=== PATIENT | female | born 1940 | race Caucasian/White ===

== ENCOUNTER 2019-07-27 01:40 | Inpatient (IN) | payer MEDICARE, BC ==
--- NOTE | 2019-07-27 01:55 | NUR ---
REC'D VIA STRETCHER PER EMS. MULTIPLE BRUISING TO FACE NOTED FROM FALL 3 DAYS PRIOR. RELATES IS HERE DUE TO ACCUSED RELATIVES OF TRYING TO SHAKE HER DOWN AND TAKE OVER HER CARE. RELATES SHE DOESN'T HAVE ALOT OF MONEY BUT THEY WERE TRYING TO GET WHAT SHE HAS. COOPERATIVE WITH ADMISSION PROCESS. ADMITTED TO ROOM 1134.
[2019-07-27] MEDS ORDERED: LIPITOR40 MG PO (02:42)
[2019-07-27] MEDS ORDERED: ASPIRIN325 MG PO (02:42)
[2019-07-27] MEDS ORDERED: COREG12.5 MG PO (02:43)
[2019-07-27] MEDS ORDERED: VITAMIN D31000 UNI2 PO (02:43)
[2019-07-27] MEDS ORDERED: VALIUM 2 MG TAB2 MG PO (02:44)
[2019-07-27] MEDS ORDERED: VOLTAREN75 MG PO (02:45)
[2019-07-27] MEDS ORDERED: CARDIZEM LA180 MG PO (02:46)
[2019-07-27] MEDS ORDERED: DURAGESIC1 PATCH .4 TRANSDERM (02:46)
[2019-07-27] MEDS ORDERED: PROZAC40 MG PO (02:46)
[2019-07-27] MEDS ORDERED: LASIX80 MG PO (02:47)
[2019-07-27] MEDS ORDERED: NEURONTIN 300300 MG PO (02:48)
[2019-07-27] MEDS ORDERED: LOPID600 MG PO (02:48)
[2019-07-27] MEDS ORDERED: DILAUDID2 MG (02:49)
[2019-07-27] MEDS ORDERED: NAMENDA10 MG PO (02:50)
[2019-07-27] MEDS ORDERED: MECLIZINE HCL25 MG PO (02:50)
[2019-07-27] MEDS ORDERED: PROTONIX40 MG PO (02:51)
[2019-07-27 03:45] VITALS: BP 145/77; BMI 22.0
[2019-07-27 05:12] LABS: BASOPHILS 0.7 % (0-2); EOSINOPHILS 7.7 % (0-7); HEMATOCRIT 25.1 % (36.0-48.0); LYMPHOCYTES 22.2 % (15-50); MCHC 29.9 g/dL (31.0-37.0); MCV 93.7 fL (80.0-100.0); MEAN PLATELET VOLUME 8.7 fL (7.4-10.4); MONOCYTES 15.4 % (2-11); RBC 2.68 10x6/uL (4.00-5.40); RDW 13.6 % (11.5-14.5)
[2019-07-27 05:34] LABS: HEMOGLOBIN 7.5 g/dL (12-16); PLATELET COUNT 413 10x3/uL (130-400)
[2019-07-27 06:17] LABS: ALBUMIN 2.5 g/dL (3.4-5.0); ANION GAP 11.7 mmol/L (8-16); BILIRUBIN - TOTAL 0.08 mg/dL (0.2-1.3); CALCIUM 8.4 mg/dL (8.5-10.1); CARBON DIOXIDE 29.7 mmol/L (21.0-32.0); CHOL - HDL RATIO 3.4 ratio (2.3-4.1); CREATININE - SERUM 1.2 mg/dL (0.6-1.3); LDL-HDL RATIO 1.7 ratio (1.5-3.5); POTASSIUM - SERUM 3.4 mmol/L (3.5-5.1); PROTEIN - SERUM 5.6 g/dL (6.4-8.2); THYROID STIMULATING HORMONE 1.39 uIU/mL (0.36-3.74)
[2019-07-27 08:50] VITALS: BP 145/85
[2019-07-27 10:19] VITALS: Wt 50.6 kg
[2019-07-27 12:37] LABS: % SATURATION 5 % (15-55); IRON 18 ug/dl (35-150); TOTAL IRON BIND CAPACITY 308 ug/dl (260-445); UNSAT IRON BIND CAPACITY 290 ug/dl (150-375)
--- NOTE | 2019-07-27 17:17 | NUR ---
PATIENT SUBSTAINED 2X SKIN TEAR TO LEFT FOREARM BEING COMBATIVE WITH STAFF DURING REDIRECTION. PT BECAME UPSET WHEN SHE COULDNT FIND HER CAR AND LEAVE WITH HER FAMILY. PT UNABLE TO REDIRECT AT THIS TIME.
--- NOTE | 2019-07-27 18:30 | NUR ---
The patient is upset and has not settled. She remains anxious.
--- NOTE | 2019-07-27 18:45 | NUR ---
The patient is getting anxious and she is tearful, she is argumentative. Offered her an ativan and she agreed as she is upset. Ativan 0.5 mg PO.
[2019-07-27 20:20] VITALS: BP 109/65
--- NOTE | 2019-07-27 22:44 | NUR ---
REC'D IN DAYROOM MOBILE IN WHEELCHAIR. RELATES SHE IS DOING YANY GOOD BUT SHE IS NOT SUPPOSE TO BE HERE. RELATES IS HERE BECAUSE THE CAR BROKE DOWM BUT SHE IS READY TO GO. APPROPRIATE TOWARD STAFF WHEN APPROACHED. THOUGHT SHE HAD LOST HER PURSE, COAT AND OTHER BELONGINGS. EXPLAINED TO HER BELONGINGS WERE LOCKED IN THE SAFE AND HER JACKET IS IN HER ROOM. VERBALIZED UNDERSTANDING. ADMINISTER MEDS AND MONITOR COMPLIANCE. REORIENT NEEDED. MED COMPLIANT. POOR REORIENTATION DUE TO IMPAIRED ABILITY TO RETAIN INFORMATION. CONTINUE POC AND PROVIDE SAFE ENVIRONMENT.
[2019-07-28 07:15] LABS: RAPID PLASMA REAGIN Non Reactive (Non Reactive)
--- NOTE | 2019-07-28 08:32 | NUR ---
B) The patient is quiet and sleepy this am. She has not been aggressive and exit seeking this am. The patient remains bruised all over her face. She has not stated that she is here because she needs her car fixed. She has not made any mention of the people in her home or any other paranoid statements. I) Provide prescribed meds. R) The patient is compliant with meds, she self propels in a w/c. She is able to stand and she tries to walk, but she is unsteady and has fallen before coming to the hospital. P) Continue POC.
[2019-07-28 09:39] VITALS: BP 95/50
--- NOTE | 2019-07-28 10:10 | NUR ---
Spoke to the patient's brother who is her POA and he provided a phone numbner. he wanted to check on her status.
--- NOTE | 2019-07-28 11:09 | NUR ---
The patient is arguing and she is yelling and screaming at the staff, she is being demanding and irritable with staff. She is not listening to any redirection and she is saying rude comments to others. Ativan 0.5 mg PO and Haldol 2 mg PO given now.
--- NOTE | 2019-07-28 12:09 | NUR ---
The patient is calmer now she is not yelling or demanding.
--- NOTE | 2019-07-28 14:51 | PSY ---
PATIENT NAME:LYNN ZAMUDIO MEDICAL RECORD: [id number] : 40 LOCATION:[facility] ADMISSION DATE: 07/27/19 ACCOUNT: [id number] PSYCHIATRIC EVALUATION DATE OF EVALUATION: 07/27/19 IDENTIFYING DATA: The patient is 78 years old and she is admitted to the hospital on a voluntary basis. CHIEF COMPLAINT: Psychosis. HISTORY OF PRESENT ILLNESS: The patient is referred to us by the [facility] Emergency Room in [place]. It seems that she presented there and had not been sleeping for several days. The police were involved with her in a disturbance at her home. Apparently, she believed her daughter and caregiver were someone else and that there was someone in the house pretending to be her son. There was no evidence of anything being wrong, but apparently it was clear that she was very impaired and she was transferred here for evaluation and treatment. PAST MEDICAL HISTORY: Significant for stroke. She also has history of seizures. She has history of pancreatitis, cataracts, diabetes, hypertension, myocardial infarction, Bergholz spotted fever, COPD, asthma, pneumonia, degenerative joint disease, scoliosis, hysterectomy. PAST PSYCHIATRIC HISTORY: Denied by the patient, although she is taking an antidepressant that I presume is prescribed by her primary care physician. FAMILY HISTORY: Noncontributory. ALLERGIES: METOCLOPRAMIDE. CURRENT MEDICATIONS: Include aspirin, Lipitor, Coreg, Valium, Voltaren, Cardizem, Duragesic, Prozac, Lasix, Neurontin, Lopid, Dilaudid, Namenda and Protonix. SOCIAL HISTORY: The patient is a former cigarette smoker. She does have a history of alcohol use. She is , has 2 children and lives alone. MENTAL STATUS EXAMINATION: The patient is awake, alert and oriented to person, place and somewhat to time and situation. Her mood is depressed. Her affect is constricted. Thought processes are circumstantial. Memory, concentration, and abstraction abilities are moderately impaired. She denies any active intent to harm herself or others as well as overt psychotic symptoms. ASSETS: Supportive family members. LIABILITIES: Limited insight. DIAGNOSTIC IMPRESSION: AXIS I: Major vascular dementia. AXIS II: None. AXIS III: Hypertension, myocardial infarction, chronic obstructive pulmonary disease, asthma, osteoarthritis, gastroesophageal reflux disease and diabetes. AXIS IV: Moderate. AXIS V: Global assessment of functioning is 35. PLAN: At this time, the patient will be admitted to the hospital for a comprehensive medical, psychological, and social evaluation. She will be treated with both mood stabilizing and memory enhancing medications. Her long-term prognosis is guarded. TRANSINT:[id number] Voice Confirmation ID: [id number] DOCUMENT ID: [id number] PATRICK DIETRICH MD at 1451 CC: [id number] DICTATION DATE: 07/27/19 1605 HOOF TRIMMER: 07/27/19 1624 ADM IN [place] [id number] [place] [id number]
[2019-07-28 20:00] VITALS: BP 120/43
--- NOTE | 2019-07-28 20:15 | NUR ---
PT BLOOD PRESSURE MANUALLY IS 62/34. DR. SISSY ARTEAGA.
--- NOTE | 2019-07-28 20:20 | NUR ---
DR. SHEEHAN ORDERED A BOLUS OF 0.9 NS @500ML, FOLLOWED BY 100ML/HR VIA TELEPHONE. CONFIRMED WITH DR. SHEEHAN. PATY MAJANO STARTED IV IN RIGHT FOREARM X1 ATTEMPT. 20G. PT TOLERATED WELL. NS HANGING INDWELLING BY GRAVITY. PT RESTING COMFORTABLY IN BED. WILL CONTINUE TO MONITOR.
--- NOTE | 2019-07-28 23:50 | NUR ---
PT OBSERVED CLIMBING OOB. SHE IS BETWEEN 2/3 BEDRAILS, ARM ANCHORING HER IN BED. SKIN TEAR X2 TO RIGHT FOREARM. BANDAGED. BONY PROMINENCE NOTED TO RIGHT FOREARM. PAGED DR SHEEHAN. PT B/P [id number] WILL CONTINUE TO MONITOR.
--- NOTE | 2019-07-29 00:52 | NUR ---
B.) PT IS RECIEVED IN DAYROOM SITTING IN A CHAIR. HER HEAD IS HANGING LOW AND SHE IS CALM AND RESPONSIVE TO STIMULI. I.) START IV AND BOLUS 0.9NS 500ML, FOLLOWED BY 100 ML/HR. R.) TOLERATE WELL. P.) CONTINUE PLAN OF CARE.
--- NOTE | 2019-07-29 00:58 | NUR ---
PT APPEARS SOB. O2 SAT OF 89% WITH BILAT CLEAR SOUNDS OF ALL LOBES WITH BOUNDING HEART RATE OF 100 BEATS PER MINUTE. 100 ML/HR NS STOPPED AT THIS TIME AND 2L NC ADDED. O2 SAT RECHECKED WITH 92%. WILL RECHECK BP.
--- NOTE | 2019-07-29 04:46 | NUR ---
O2 SAT 95. PT HAS TO BE AROUSED TO BREATHE AND IS ON O2 @3L VIA NC. WILL CONTINUE TO MONITOR.
--- NOTE | 2019-07-29 07:25 | NUR ---
Assessed the patient this am she says she is feeling better and she says she remembers last night. She is pleasant and polite and she is thanking staff for caring for her. She is sitting up in bed and she is on 3L/M O2, bp is low and she has bilateral 2-3 + edema in her lower legs. She is talking and responsive and making appropriate eye contact.
--- NOTE | 2019-07-29 08:02 | PN ---
PATIENT:LYNN ZAMUDIO MEDICAL RECORD: [id number] LOCATION:[facility] ADMISSION DATE: 07/27/19 PROGRESS NOTE DATE OF SERVICE: 07/28/2019 SUBJECTIVE: The patient's case was discussed with staff. She has no new complaint. OBJECTIVE: The patient has been very agitated today. She has been difficult for the staff to redirect. She denies that she would seek to harm herself or others. ASSESSMENT: Vascular dementia. PLAN: The patient's Paxil will be reduced significantly. I am probably going to discontinue it. Her long-term prognosis is guarded. TRANSINT:[id number] Voice Confirmation ID: [id number] DOCUMENT ID: [id number] PATRICK DIETRICH MD at 0802 CC: [id number] DICTATION DATE: 07/28/19 1524 BLIND HOOKER: 07/28/19 2129 ADM IN [facility] [address] [place] [address]
--- NOTE | 2019-07-29 09:15 | NUR ---
Patient trying to get out of the bed alone. Assisted her up and took her to the day room as she said she did not want to eat. Provided her a cup of orange juice and she did drink it all. She now is trying to get up to go brush her teeth, but asked her to wait just a few minutes. At this time she is following direction. She is on 3L/M O2 portable at this time.
[2019-07-29 09:16] VITALS: BP 92/51
[2019-07-29 12:06] LABS: BASOPHILS 0.5 % (0-2); EOSINOPHILS 9.9 % (0-7); HEMATOCRIT 25.5 % (36.0-48.0); HEMOGLOBIN 7.7 g/dL (12-16); IMMATURE GRANULOCYTES 0.7 % (0-5); LYMPHOCYTES 8.1 % (15-50); MCH 28.3 pg (26.0-34.0); MCHC 30.2 g/dL (31.0-37.0); MCV 93.8 fL (80.0-100.0); MONOCYTES 9.3 % (2-11); NEUTROPHILS 71.5 % (40-80); PLATELET COUNT 421 10x3/uL (130-400); RBC 2.72 10x6/uL (4.00-5.40); RDW 13.8 % (11.5-14.5); WBC 9.8 10x3/uL (4.8-10.8)
[2019-07-29 12:20] LABS: ALBUMIN 2.3 g/dL (3.4-5.0); ANION GAP 13.8 mmol/L (8-16); BILIRUBIN - TOTAL 0.15 mg/dL (0.2-1.3); CALCIUM 8.1 mg/dL (8.5-10.1); CREATININE - SERUM 1.4 mg/dL (0.6-1.3); POTASSIUM - SERUM 3.8 mmol/L (3.5-5.1); PROTEIN - SERUM 6.1 g/dL (6.4-8.2)
--- NOTE | 2019-07-29 13:49 | NUR ---
The patient is c/o being SOB, checked her vs. BP 98/65, P 90, SPO@ 88 checked on her toes, checked on finger it is 79%.
--- NOTE | 2019-07-29 13:53 | NUR ---
Called resp for a breathing treatment now.
--- NOTE | 2019-07-29 16:34 | NUR ---
The patient is getting upset, she is trying to get out of her recliner, she is hitting it and trying to spin it around. This nurse did go over to her and she is beginning to escalate and yell. She said "I want out of this damn chair, into something I can move around in." Assisted her to a w/c with her oxygen and sat her at the table, but she says "I do not need to be here, martina the police, call my Dr., get me to the [facility], I am psychotic and I have dementia and osteoporosis." Tried to talk nicely with the patient, but she is not having it. She did begin to grab my hands and say "I want you to fight me, come on e start fighting me." Ativan 0.25 mg PO given as her case was discussed with Dr. Pierce and he is aware of her rapid response last night and did not want to further exacerbate her breathing issues, so he is ok to give a partial dose of Ativan.
--- NOTE | 2019-07-29 16:51 | NUR ---
Currently the patient is sitting at the table and conversing with a male patient and he is calming her down. She is not trying to fight and she is not yelling or cursing.
[2019-07-29 20:00] VITALS: BP 110/60
--- NOTE | 2019-07-29 20:04 | NUR ---
RECEIVED IN DAYROOM. SITTING IN RECLINER AND WATCHING TV. CALM AND COOPERATIVE WITH CARE AND ASSESSMENT. NO PARANOID STATEMENTS MADE. REDIRECT AND REORIENT NEEDED. CONTINUES TO WATCH TV WHILE WAITING ON PM MEDICATIONS. CONTINUE PLAN OF CARE.
--- NOTE | 2019-07-30 07:35 | NUR ---
PATIENT EXPERIENCING ANXIETY, ATIVAN 0.5 MG ADMIN IM LEFT DELTOID.
[2019-07-30 08:00] VITALS: BP 114/62
--- NOTE | 2019-07-30 17:09 | NUR ---
NO FURTHER EPISODES OF ANXIETY SINCE THIS MORNING. HOWEVER, PATIENT FREQUENTLY REMOVES NASAL CANNULA. ENCOURAGED BY STAFF TO KEEP CANNULA ON AT ALL TIMES DUE TO O2 SATURATION DECLINE. MEDS ADMIN PER ORDERS WITH COMPLETE MED COMPLIANCE NOTED. CONTINUE PLAN OF CARE DIRECTED.
[2019-07-30 20:10] VITALS: BP 146/55
[2019-07-31 02:32] LABS: APPEARANCE CLEAR (CLEAR); BILIRUBIN NEGATIVE (NEGATIVE); COLOR YELLOW (YELLOW); GLUCOSE NEGATIVE (NEGATIVE); KETONE NEGATIVE (NEGATIVE); NITRITE NEGATIVE (NEGATIVE); PROTEIN 1+ mg/dL (NEGATIVE); UROBILINOGEN NORMAL (NORMAL)
[2019-07-31 02:33] LABS: BACTERIA NONE SEEN /hpf (NEGATIVE); EPITHELIAL CELLS 0-5 /hpf (0-5); RED CELLS - URINE NONE SEEN /hpf (0-5); WHITE CELLS - URINE 0-5 /hpf (NEGATIVE)
--- NOTE | 2019-07-31 03:55 | NUR ---
B.) PT IS ALERT AND ORIENTED TO SELF ONLY. SHE IS RECEIVED IN HER GERICHAIR. SHE HAS O2 VIA NC AT 3L. SHE IS ABLE TO MAKE HER NEEDS KNOWN. SHE IS PLESANT WITH STAFF BUT IS CONSTANTLY TRYING TO PULL HER PANTS OFF. I.) REDIRECT OFTEN. PROVIDED PM MEDICATION. R.) PT IS EASY TO REDIRECT. COMPLIANT WITH ALL MEDICATIONS. P.) CONTINUE PLAN OF CARE
[2019-07-31 08:28] VITALS: BP 127/52
--- NOTE | 2019-07-31 13:10 | NUR ---
PT IN DAYROOM SCREAMING, YELLING, AND HITTING AT STAFF. UNABLE TO REDIRECT PT AT THIS TIME. ATIVAN 0.5MG IM GIVEN PER ORDER. PT CONTINUES TO REMOVE OXYGEN AT THSI TIME. REAPPLIED PER STAFF. PT EDUCATED ON IMPORTANCE OF OXYGEN USE. WILL CPOC.
--- NOTE | 2019-07-31 13:19 | NUR ---
PT COMBATIVE NO TX GIVEN
--- NOTE | 2019-07-31 14:49 | NUR ---
Nutrition Follow-up: Chart reviewed. Noted pt with "no appetite." MD plans to start Megace. Diet: Regular + Ensure with meals PO intake: ~26% average x last 9 meals Last BM 07/27/19. Wt: 119# (07/30/19); Admit wt: 117# (07/27/19) Significant meds: megace. Labs noted: GFR 34. Skin assessment reviewed. Continue current nutrition regimen. Encourage PO intake. Continue Megace as medically feasible. RD Following
--- NOTE | 2019-07-31 15:49 | PN ---
PATIENT:LYNN ZAMUDIO MEDICAL RECORD: [id number] LOCATION:[facility] ADMISSION DATE: 07/27/19 PROGRESS NOTE DATE OF SERVICE: 07/29/2019 SUBJECTIVE: The patient's case was discussed with staff. She has no new complaint. OBJECTIVE: The patient had a rapid response called last night. Apparently, she had respiratory suppression and low blood pressure. She is better today, but she is wearing 3 liters via nasal prong. She also looks sedated. ASSESSMENT: Vascular dementia. PLAN: I am going to stop all medications that have respiratory suppression associated with it and will observe her. TRANSINT:[id number] Voice Confirmation ID: [id number] DOCUMENT ID: [id number] PATRICK DIETRICH MD at 1549 CC: [id number] DICTATION DATE: 07/29/19839 FIBERGLASS AUTO BODY REPAIRER: 07/29/19 0855 ADM IN [facility] [address] [place] [address]
--- NOTE | 2019-07-31 18:02 | NUR ---
PT VERY DEMANDING AND AGGRESSIVE WITH STAFF. PT ATTEMPTED TO KICK OTHER PTS AND STAFF. UNABLE TO REDIRECT AT THIS TIME. ATIVAN 0.5MG IM GIVEN PER ORDER. WILL CPOC.
[2019-07-31 20:05] VITALS: BP 113/66
--- NOTE | 2019-07-31 21:24 | NUR ---
RECEIVED IN DAYROOM. SITTING IN A RECLINER AT THE TABLE. O2 AT 3L VIA NC. CALM AND COOPERATIVE WITH CARE AND ASSESSMENT. NO SIGNS OF AGGRESSION. REDIERCT AND REORIENT NEEDED. CONTINUES TO SIT QUIETLY IN DAYROOM. CONTINUE PLAN OF CARE
--- NOTE | 2019-08-01 08:00 | NUR ---
PT IS AWAKE AND ALERT TO PERSON ONLY. CALM AND COOPERATIVE WITH ASSESSMENT. MED COMPLIANT. NO BEHAVIORS NOTED AT THIS TIME. REDIRECT AND REORIENT NEEDED. FALL PRECAUTIONS IN PLACE. FALL PRECAUTIONS IN PLACE. WILL CPOC.
[2019-08-01 08:18] VITALS: BP 148/75
--- NOTE | 2019-08-01 10:44 | NUR ---
NAOMI CONTACTED BROTHER AND MARILYN COMBS TO DISCUSS DISCHARGE PLANNING NEEDS. NAOMI EDUCATED ON DIFFERENT LEVELS OF CARE. NAOMI STATED AT THIS TIME PT DOESN'T LOOK TO BE ASSISTED LIVING APPROPRIATE. NAOMI EDUCATED BROTHER ON DISEASE PROGRESSION AND MEDICATION CHANGES. MR COMBS STATED HE WOULD WANT A REFERRAL TO [facility] AND THE [facility]. HE STATED HE WOULD GET WITH HIS FAMILY TO DISCUSS THE SECOND [facility] OPTION AND WILL CONTACT NAOMI WITH FURTHER DETAILS.
--- NOTE | 2019-08-01 14:56 | NUR ---
SW SPOKE TO PT'S DTR AND SHE STATED PT HAS A BROKE RIGHT PELVIS FROM A PREVIOUS FALL AND WANTED TO MAKE UNIT AWARE. SHE ALSO STATED HER RIGHT ARM JUST RECENTLY CAME OUT OF A CAST. SHE STATED SURGEONS DON'T BELIEVE THEY CAN REPAIR HER PELVIS. PT'S DTR STATED SHE DOESN'T BELIEVE SHE CAN CARE FOR PATIENT DUE TO PT BEING MEAN TO HER DURING CARE.
--- NOTE | 2019-08-01 15:28 | PN ---
PATIENT:LYNN ZAMUDIO MEDICAL RECORD: [id number] LOCATION:[facility] ADMISSION DATE: 07/27/19 PROGRESS NOTE DATE OF SERVICE: 07/31/2019 SUBJECTIVE: The patient's case was discussed with staff. She has no new complaint. OBJECTIVE: The patient is not eating adequately. She is withdrawn, but I think the issue with eating is related to dementia. I am going to start her on Megace for its appetite stimulating properties. She will be monitored for clinical changes associated with its use. Her long-term prognosis is guarded. TRANSINT:[id number] Voice Confirmation ID: [id number] DOCUMENT ID: [id number] PATRICK DIETRICH MD at 1528 CC: [id number] DICTATION DATE: 07/31/19 1643 RIB BENDER: 07/31/[address] [facility] [address] [place] [id number]
--- NOTE | 2019-08-01 20:56 | NUR ---
RECEIVED IN DINING ROOM. SITTING IN A RECLINING CHAIR WITH STAFF AT HER SIDE TAKING HER VITALS. CALM AND COOPERATIVE WITH CARE AND ASSESSMENT. IN GOOD SPIRITS. NO SIGNS OF PARANOIA. REDIRECT AND REORIENT NEEDED. SITTING QUIETLY IN DINING AREA AT THIS TIME WITH RT TECH AT HER SIDE. CONTINUE PLAN OF CARE
[2019-08-01 21:05] VITALS: BP 148/75
[2019-08-02 08:00] VITALS: BP 158/83
--- NOTE | 2019-08-02 13:00 | NUR ---
AWAKE AND ALERT WITH O2 ON AT 2L/NC. ADMINISTERED PRESCRIBED MEDICATIONS. COMPLIANT WITH MEDS, REDIRECT AND REORIENT NEEDED. NO BEHAVIORS NOTED. CONTINUE PLAN OF CARE.
--- NOTE | 2019-08-02 14:20 | PN ---
PATIENT:LYNN ZAMUDIO MEDICAL RECORD: [id number] LOCATION:[facility] ADMISSION DATE: 07/27/19 PROGRESS NOTE DATE OF SERVICE: 08/01/2019 SUBJECTIVE: The patient's case was discussed with staff. She has no new complaint. OBJECTIVE: The patient is in good behavioral control with limited insight about her condition. She tolerates her medicines well. ASSESSMENT: Vascular dementia. PLAN: The patient was very agitated yesterday and required 2 doses of p.r.n. medication. She is much calmer today. Dr. Su has started her back on [place]. I think that may be helping her level of agitation, so I am just going to watch and see how things progress today before making significant changes in her other psychoactive medicines. TRANSINT:[id number] Voice Confirmation ID: [id number] DOCUMENT ID: [id number] PATRICK DIETRICH MD at 1420 CC: [id number] DICTATION DATE: 08/01/19 155 UNEMPLOYMENT EXAMINER: 08/01/19 2218 ADM IN [facility] [address] [place] [id number]
[2019-08-02 20:00] VITALS: BP 150/83
--- NOTE | 2019-08-02 22:34 | NUR ---
B.) PT IS ALERT AND ORIENTED TO SELF ONLY. SHE IS PLEASANT WITH STAFF AND PEERS. SHE IS ABLE TO MAKE HER NEEDS KNOWN. SHE IS RECEIVED IN HER WHEELCHAIR WITH HER OXYGEN ON VIA NC @3L. I.) REDIRECT OFTEN. PROVIDED PM MEDICATIONS. R.) EASY TO REDIRECT. COMPLIANT WITH ALL MEDICATIONS. P.) CONTINUE PLAN OF CARE
[2019-08-03 08:36] VITALS: BP 160/92
--- NOTE | 2019-08-03 10:08 | NUR ---
RECEIVED PATIENT IN DINING ROOM FOR B'FAST, ALERT, CALM, COOPERATIVE, NO AGITATION OR AGGRESSION NOTED. MEDS ADMIN PER ORDERS WITH COMPLETE MED COMPLIANCE NOTED. CONT POC DIRECTED.
--- NOTE | 2019-08-03 12:10 | NUR ---
NUTRITION F/U PT WITH POOR PO INTAKE RECENT MEALS, RECEIVING MEGACE. WT REMAINS STABLE. LAST BM WAS 08/01/19. WILL CONTINUE TO MONITOR PO INTAKE AND WT. RD FOLLOWING
--- NOTE | 2019-08-03 15:25 | PN ---
PATIENT:LYNN ZAMUDIO MEDICAL RECORD: [id number] LOCATION:[facility] ADMISSION DATE: 07/27/19 PROGRESS NOTE DATE OF SERVICE: 08/02/2019 SUBJECTIVE: The patient's case was discussed with staff. She has no new complaint. OBJECTIVE: The patient is in good behavioral control and much calmer since Dr. Su replaced her on hydrocodone. ASSESSMENT: Vascular dementia. PLAN: Current medicines have been reviewed. I am going to maintain them and I am going to start her on Namenda for its memory enhancing properties. Her long-term prognosis is guarded. TRANSINT:[id number] Voice Confirmation ID: [id number] DOCUMENT ID: [id number] PATRICK DIETRICH MD at 1525 CC: [id number] DICTATION DATE: 08/02/19 1548 SPEEDOMETER INSPECTOR: 08/02/19 4859 ADM IN [facility] [address] [place] [address]
[2019-08-03 20:00] VITALS: BP 133/63
--- NOTE | 2019-08-03 23:10 | NUR ---
REC'D SITTING IN THE DAYROOM INTERACTING WITH A PEER. CONFUSED AND DISORIENTED. RELATES SHE IS AT "[facility]." REASON FOR ADMISSION ACCORDING TO PT IS "GETTING SCHOOL AND COULDN'T STOP." PT ON 3L/MIN PER NC HOWEVER KEEPS PULLING IT OFF AND LAUGHING WHEN APPROACHED BY STAFF TO REPLACE IT. PLEASANT WHEN APPROACHED BY STAFF. ADMINISTER MEDS AND MONITOR COMPLIANCE. REORIENT NEEDED. MED COMPLIANT. POOR REORIENTATION DUE TO IMPAIRED ABILITY TO RETAIN INFORMATION. CONTINUE POC AND PROVIDE SAFE ENVIRONMENT.
[2019-08-04 08:05] VITALS: BP 133/75
--- NOTE | 2019-08-04 12:50 | NUR ---
PT SITTING AT TABLE WITH STAFF. PT IS CONFUSED AND ALERT TO SELF ONLY. PT THINKS SHE IS GOING HOME AND THAT SHE HAS SMALL DOGS SHE HAS TO TEND TOO. PT HAS O2 NC AT 3LPM. PT CONTS TO REMOVE NC AND STAFF EDUCATES AND REPLACES NC. PT IS VERY FORGETFUL AND HAS LIMITED INSIGHT TO SITUTION. STAFF ATTEMPTS TO REDIRECT PT. PT LAUGHS AT STAFF. PT IS NOT AGGRESSIVE WITH STAFF. PT REQUIRES ASSISTANCE WITH AMBULATORY AND ADL'S. CHAIR ALARM IN PLACE AND ACTIVE. WILL CONT PLAN OF CARE.
--- NOTE | 2019-08-04 14:32 | PN ---
PATIENT:LYNN ZAMUDIO MEDICAL RECORD: [id number] LOCATION:[facility] ADMISSION DATE: 07/27/19 PROGRESS NOTE DATE OF SERVICE: 08/03/2019 SUBJECTIVE: The patient's case was discussed with staff. She has no new complaint. OBJECTIVE: The patient is in good behavioral control with limited insight about her condition. She does tolerate her medicines well. ASSESSMENT: Dementia. PLAN: Current medicines have been reviewed and will be maintained. Long-term prognosis is guarded. TRANSINT:[id number] Voice Confirmation ID: [id number] DOCUMENT ID: [id number] PATRICK DIETRICH MD at 1432 CC: [id number] DICTATION DATE: 08/03/19 1550 FUELS ENGINEER: 08/03/19 2325 ADM IN [place] [id number] [place] [address]
[2019-08-04 21:35] VITALS: BP 117/63
--- NOTE | 2019-08-04 23:11 | NUR ---
REC'D SITTING IN A CHAIR IN THE HALLWAY. CONFUSED AND DISORIENTED. PLEASANT WHEN APPROACHED. DOES NOT LEAVE HER O2 ON. PT IS TO WEAR HER 02 AT 3L/MIN NC AT ALL TIMES. PT WILL LAUGH WHEN TRYING TO INTERACT WITH STAFF. ADMINISTER MEDS AND MONITOR COMPLIANCE. REORIENT NEEDED. MED COMPLIANT. POOR REORIENTATION PATIENT WILL LAUGH AND RESPOND WITH SOMETHING THAT IS NOT IN THE CONTEXT OF THE CONVERSATION. CONTINUE POC AND PROVIDE SAFE ENVIRONMENT.
--- NOTE | 2019-08-05 09:55 | NUR ---
B) The patient is awake and she is confused as she is trying to stand and when staff ask her what she needs she says "To do more." She has poor short term memory and she has poor insight into her situation. I) Provide prescribed meds. R) The patient is compliant with meds. P) Continue POC.
[2019-08-05 10:02] VITALS: BP 143/67
--- NOTE | 2019-08-05 11:25 | NUR ---
The patient is confused she keeps taking off her oxygen and she keeps trying to touch the oxygen tank. She is also trying to stand. She has poor insight into her situation. Placed the oxygen tank behind her chair and replaced the tubing in her nares.
--- NOTE | 2019-08-05 12:27 | PN ---
PATIENT:LYNN ZAMUDIO MEDICAL RECORD: [id number] LOCATION:[facility] ADMISSION DATE: 07/27/19 PROGRESS NOTE DATE OF SERVICE: 08/04/2019 SUBJECTIVE: The patient's case was discussed with staff. She has no new complaint. OBJECTIVE: The patient slept well last night. She has limited insight about her situation. She still is not eating well, although she is receiving Megace. ASSESSMENT: Vascular dementia. PLAN: Current medicines have been reviewed and will be maintained. Long-term prognosis is guarded. TRANSINT:[id number] Voice Confirmation ID: [id number] DOCUMENT ID: [id number] PATRICK DIETRICH MD at 1227 CC: [id number] DICTATION DATE: 08/04/19 1440 EMERGENCY DEPT TECH: 08/04/19 1543 ADM IN [place] [id number] [place] [address]
--- NOTE | 2019-08-05 12:45 | NUR ---
Rose Palencia APN ordered oxygen prn at this time. Removed the patient's O2 and her O2 sat is 94%.
--- NOTE | 2019-08-05 14:10 | NUR ---
The patient refuses to have her lab drawn at this time. She told the physical laboratory assistant to leave her alone. She does not feel well she has had two loose BM's. Let Rose Palencia APN be aware and she prescribed Flagyl and Imodium, see MAR.
[2019-08-05 16:07] LABS: BASOPHILS 0.6 % (0-2); EOSINOPHILS 1.7 % (0-7); HEMATOCRIT 26.2 % (36.0-48.0); HEMOGLOBIN 7.6 g/dL (12-16); IMMATURE GRANULOCYTES 0.5 % (0-5); LYMPHOCYTES 14.7 % (15-50); MCH 27.5 pg (26.0-34.0); MCV 94.9 fL (80.0-100.0); MEAN PLATELET VOLUME 9.6 fL (7.4-10.4); MONOCYTES 7.5 % (2-11); PLATELET COUNT 563 10x3/uL (130-400); RBC 2.76 10x6/uL (4.00-5.40); WBC 10.8 10x3/uL (4.8-10.8)
[2019-08-05 16:12] LABS: ALBUMIN 2.6 g/dL (3.4-5.0); ANION GAP 13.8 mmol/L (8-16); BILIRUBIN - TOTAL 0.24 mg/dL (0.2-1.3); CALCIUM 8.5 mg/dL (8.5-10.1); CREATININE - SERUM 0.9 mg/dL (0.6-1.3); PROTEIN - SERUM 6.8 g/dL (6.4-8.2)
[2019-08-05 16:13] LABS: POTASSIUM - SERUM 2.8 mmol/L (3.5-5.1)
--- NOTE | 2019-08-05 16:16 | NUR ---
Lab called a critical potassium 2.8, Called Rose Palencia APN and she ordered potassium 20 mEq po now, 20 mEq po at 2100 and 20 mEq po daily and recheck her BMP tomorrow.
[2019-08-05 20:04] VITALS: BP 126/51
--- NOTE | 2019-08-06 00:34 | NUR ---
REC'D PATIENT SITTING IN CHAIR. SMILES WHEN APPROACHED. CONFUSED AND DISORIENTED. WHEN TALKING WITH PATIENT SHE WILL LAUGH VERSUS RESPONDING TO QUESTIONS. CALM AND COOPERATIVE. ADMINISTER MEDS AND MONITOR COMPLIANCE. REORIENT NEEDED. MED COMPLIANT. DOES NOT APPEAR TO REORIENT. PATIENT WILL JUST LAUGH WHEN NURSE IS TALKING WITH HER. CONTINUE POC AND PROVIDE SAFE ENVIRONMENT.
[2019-08-06 06:06] LABS: CALC OSMOLALITY 300 mosm/kg (275-300); CALCIUM 8.7 mg/dL (8.5-10.1); CARBON DIOXIDE 27.9 mmol/L (21.0-32.0); CHLORIDE - SERUM 113 mmol/L (98-107); CREATININE - SERUM 0.7 mg/dL (0.6-1.3); GLUCOSE 104 mg/dL (74-106); SODIUM 151 mmol/L (136-145); eGFR NON AFRICAN AMERICAN 86 mL/min (90-120)
[2019-08-06 06:07] LABS: UREA NITROGEN 15 mg/dL (7-18)
[2019-08-06 09:05] VITALS: BP 134/69
--- NOTE | 2019-08-06 11:27 | NUR ---
PT IS AWAKE AND ALERT TO PERSON ONLY. CALM AND COOPERATIVE WITH ASSESSMENT. MED COMPLIANT. NO BEHAVIORS NOTED AT THIS TIME. PT HAS POOR INSIGHT. REDIRECT AND REORIENT NEEDED. FALL PRECAUTIONS IN PLACE. WILL CPOC.
--- NOTE | 2019-08-06 11:38 | NUR ---
PT HAD A SMALL BOWEL MOVEMENT. THIS NURSE AND MHT ASSISTED PT TO RESTROOM, CLEAN UP, CHANGED BRIEF AND CHANGE OF CLOTHES ON. PT TOLERATED WELL.
--- NOTE | 2019-08-06 16:57 | NUR ---
PT HAD A VISITOR THIS SHIFT. TOLERATED WELL WITH NO RESTLESSNESS NOTED. PT HAS BEEN DRINKING WATER VERY WELL THIS SHIFT DUE TO HAVING A HIGH SODIUM LEVEL. WILL CONT TO MONITOR.
--- NOTE | 2019-08-06 21:43 | NUR ---
RECEIVED IN HALLWAY OUTSIDE OF NURSES STATION. CALM AND COOPERATIVE WITH CARE AND ASSESSMENT. NO PARANOID STATEMENTS. REDIRECT AND REORIENT NEEDED. RESTING IN BED WITH EYES CLOSED AT THIS TIME. CONTINUE PLAN OF CARE.
[2019-08-07 07:02] LABS: BASOPHILS 0.4 % (0-2); EOSINOPHILS 0.5 % (0-7); HEMATOCRIT 26.4 % (36.0-48.0); HEMOGLOBIN 7.8 g/dL (12-16); IMMATURE GRANULOCYTES 0.4 % (0-5); LYMPHOCYTES 7.1 % (15-50); MCH 27.6 pg (26.0-34.0); MCHC 29.5 g/dL (31.0-37.0); MCV 93.3 fL (80.0-100.0); MEAN PLATELET VOLUME 9.3 fL (7.4-10.4); MONOCYTES 6.8 % (2-11); NEUTROPHILS 84.8 % (40-80); PLATELET COUNT 543 10x3/uL (130-400); RBC 2.83 10x6/uL (4.00-5.40); RDW 14.1 % (11.5-14.5); WBC 18.8 10x3/uL (4.8-10.8)
--- NOTE | 2019-08-07 08:12 | NUR ---
DR. SHEEHAN NOTIFIED IN REGARDS TO RIGHT FOREARM SWOLLEN AND WARM TO THE TOUCH. V/S 99.0, 137/65, 94-O2,118, R-16. NEW ORDERS NOTED FOR RIGHT FOREARM XRAY, ROCEPHIN 1GM IM X 7 DAYS AND PROBIOTIC 460MG PO DAILY X 14 DAYS. WILL CPOC.
[2019-08-07 08:47] LABS: ALBUMIN 2.7 g/dL (3.4-5.0); ALKALINE PHOSPHATASE 125 U/L (46-116); ALT (SGPT) 19 U/L (10-68); BILIRUBIN - TOTAL 0.37 mg/dL (0.2-1.3); CALC OSMOLALITY 287 mosm/kg (275-300); CARBON DIOXIDE 24.7 mmol/L (21.0-32.0); CHLORIDE - SERUM 109 mmol/L (98-107); CREATININE - SERUM 0.6 mg/dL (0.6-1.3); GLUCOSE 107 mg/dL (74-106); POTASSIUM - SERUM 3.9 mmol/L (3.5-5.1); PROTEIN - SERUM 6.6 g/dL (6.4-8.2); SODIUM 145 mmol/L (136-145); UREA NITROGEN 11 mg/dL (7-18); eGFR NON AFRICAN AMERICAN > 90 mL/min (90-120)
[2019-08-07 10:44] VITALS: BP 137/65
--- NOTE | 2019-08-07 14:01 | PN ---
PATIENT:LYNN ZAMUDIO MEDICAL RECORD: [id number] LOCATION:[facility] ADMISSION DATE: 07/27/19 PROGRESS NOTE DATE OF SERVICE: 08/05/2019 SUBJECTIVE: The patient's case was discussed with staff. She has no new complaint. OBJECTIVE: The patient is in good behavioral control with limited insight about her condition. She has had no agitated behavior today. ASSESSMENT: Vascular dementia. PLAN: Current medicines have been reviewed and will be maintained. Her long-term prognosis is guarded. I anticipate she can be discharged from the hospital soon. TRANSINT:[id number] Voice Confirmation ID: [id number] DOCUMENT ID: [id number] PATRICK DIETRICH MD at 1401 CC: [id number] DICTATION DATE: 08/05/19 1235 AUDITOR: 08/05/19 1248 ADM IN [place] [id number] [place] [address]
[2019-08-07 21:37] VITALS: BP 121/76
--- NOTE | 2019-08-08 00:16 | NUR ---
RECEIVED IN HALLWAY OUTSIDE OF NURSES STATION. SITTING IN A RECLINER.. CALM AND COOPERATIVE WITH CARE AND ASSESSMENT. NO SIGNS OF AGGRESSION. REDIRECT AND REORIENT NEEDED. RESTING IN BED WITH EYES CLOSED. CONTINUE PLAN OF CARE
--- NOTE | 2019-08-08 02:26 | NUR ---
PT RIGHT FOREARM SORE, RED, SWOLLEN AND TENDER TO TOUCH. ELEVATED ARM AND PLACED ICE PACK ON IT. WILL CONTINUE TO MONITOR.
[2019-08-08 08:00] VITALS: BP 132/79
--- NOTE | 2019-08-08 12:00 | NUR ---
RECEIVED PT. IN D/R FOR B'FAST, ALERT, CALM, COOPERATIVE. NO BEHAVIORAL ISSUES NOTED. COMPLIANT WITH MEDS. PT. TO DISCHARGE LATER THIS SHIFT.
--- NOTE | 2019-08-08 12:52 | PN ---
PATIENT:LYNN ZAMUDIO MEDICAL RECORD: [id number] LOCATION:[facility] ADMISSION DATE: 07/27/19 PROGRESS NOTE DATE OF SERVICE: 08/07/2019 SUBJECTIVE: The patient's case was discussed with staff. She has no new complaint. OBJECTIVE: The patient is tolerating her medicines well. She has limited insight about her situation. She has not been aggressive. ASSESSMENT: No change in diagnoses. PLAN: The patient's Namenda is going to be increased to 5 mg twice daily. She will be monitored for clinical changes associated with its use. Her long-term prognosis is guarded. TRANSINT:[id number] Voice Confirmation ID: [id number] DOCUMENT ID: [id number] PATRICK DIETRICH MD at 1252 CC: [id number] DICTATION DATE: 08/07/19 1741 BOTTOMING ROOM SUPERVISOR: 08/08/19 0140 ADM IN [place] [id number] [place] [address]
--- NOTE | 2019-08-08 15:27 | NUR ---
RECEIVED PT IN DINING ROOM AT BREAKFAST TIME, ALERT, CALM, CONFUSED, COOPERATIVE WITH STAFF, CHEERFUL MOOD, CONT ON ROCEPHIN WITH NO S/S ADVERSE REACTION. COMPLIANT WITH MEDS, COOPERATIVE WITH PLAN OF CARE.
--- NOTE | 2019-08-08 16:05 | NUR ---
Nutrition Follow-up: Diet: Regular + Ensure TID PO intake: ~29% average x last 9 meals recorded Chart reviewed. Noted pt must be fed at meal times. Last BM: 08/08/19. Wt: 113# (08/06/19); Admit wt: 117# (07/27/19). Noted pt is on Megace already. Labs and skin assessment reviewed. Continue current nutrition regimen. Encourage PO intake. Clinical Nutrition is available should enteral nutrition be clinically indicated or desired. RD Following.
[2019-08-08 20:00] VITALS: BP 122/53
--- NOTE | 2019-08-08 22:03 | NUR ---
RECEIVED IN DAYROOM. WATCHING TV. CALM AND COOPERATIVE WITH CARE AND ASSESSMENT. NO PARANOID STATEMENTS MADE THIS EVENING. REDIRECT AND REORIENT NEEDED. RESTING IN BED WITH EYES CLOSED AT THIS TIME. CONTINUE PLAN OF CARE.
[2019-08-09 08:42] VITALS: BP 174/80
--- NOTE | 2019-08-09 12:02 | PN ---
PATIENT:LYNN ZAMUDIO MEDICAL RECORD: [id number] LOCATION:[facility] ADMISSION DATE: 07/27/19 PROGRESS NOTE DATE OF SERVICE: 08/08/2019 SUBJECTIVE: The patient's case was discussed with staff. She has no new complaint. OBJECTIVE: The patient is in good behavioral control with poor insight about her condition. She is not eating very well, but is taking Megace. She has no thoughts of harming herself or others. ASSESSMENT: Vascular dementia. PLAN: Current medicines have been reviewed and will be maintained. Long-term prognosis is guarded. TRANSINT:[id number] Voice Confirmation ID: [id number] DOCUMENT ID: [id number] PATRICK DIETRICH MD at 1202 CC: [id number] DICTATION DATE: 08/08/19 1315 MACHINE PULLER AND LASTER: 08/08/19 2259 ADM IN [place] [id number] [place] [address]
--- NOTE | 2019-08-09 21:50 | NUR ---
PATIENT RECEIVED IN DAYROOM, PATIENT HAS A GOOD AFFECT, SHE IS VERY CONFUSED, COMPLIANT WITH MEDS, NO ADVERSE EFFECT NOTED. REQUIRES HELP WITH ADL'S. WILL FOLLOW POC
[2019-08-09 23:46] VITALS: BP 116/70
--- NOTE | 2019-08-10 08:18 | NUR ---
B) The patient is awake and alert, she is calm, she is not paranoid at this time. She is in a w/c and she self propels. I) Provide prescribed meds. R) The patient is compliant with meds. P) Continue POC.
[2019-08-10 09:26] VITALS: BP 158/92
--- NOTE | 2019-08-10 13:11 | NUR ---
NUTRITION F/U CHART REVIEWED. PT WT DOWN ~4#. GOOD INTAKE RECENT MEALS. BM RECORDED ON 08/09/19. PT REQUIRES ASSIST WITH MEALS, RECEIVING MEGACE AND ENSURE. WILL CONTINUE TO PROVIDE DIET AND ENSURE. MONITOR PO INTAKE AND WT. RD FOLLOWING
--- NOTE | 2019-08-10 13:51 | PN ---
PATIENT:LYNN ZAMUDIO MEDICAL RECORD: [id number] LOCATION:[facility] ADMISSION DATE: 07/27/19 PROGRESS NOTE DATE OF SERVICE: 08/09/2019 SUBJECTIVE: The patient's case was discussed with staff. She has no new complaint. OBJECTIVE: The patient is in good behavioral control with poor insight about her condition. She is tolerating her medicines well. ASSESSMENT: Vascular dementia. PLAN: Current medicines have been reviewed and will be maintained. I think her long-term prognosis is guarded and if this level of improvement continues, I anticipate she can be transitioned out of the hospital soon. TRANSINT:[id number] Voice Confirmation ID: [id number] DOCUMENT ID: [id number] PATRICK DIETRICH MD at 1351 CC: [id number] DICTATION DATE: 08/09/19 1240 OBSTETRICAL NURSE: 08/09/19 1249 ADM IN [place] [id number] [place] [address]
--- NOTE | 2019-08-10 19:30 | NUR ---
PATIENT RECEIVED IN DAYROOM. SITTING CALMLY, SMILING, GREAT AFFECT, SHE HAS BEEN COMPLIANT WITH MEDS, NO ADVERSE REACTION NOTED, SHE IS DEPENDENT ON OTHERS FOR SELF CARE. COMPLETELY CONFUSED. WILL FOLLOW POC
[2019-08-10 22:12] VITALS: BP 141/81
--- NOTE | 2019-08-11 09:13 | NUR ---
B) The patient is sleepy and slugglish this am. She awakened enough to eat a little breakfast and she took her am meds. She is pleasant and calm, oriented to self only. No mention of paranoia today. She is in a gerichair and she is weak and moves very little. I) Provide the prescribed meds. R) The patient is compliant with meds. P) Continue POC.
--- NOTE | 2019-08-11 10:19 | NUR ---
Spoke to the patient's brother and he wanted to know when the patient is going to be discharged and he also wanted to know if the referral to [facility] has been completed. Let him know the referral has been done and we do not have a discharge date, but Mike Mercer will be in on Wednesday. He said he will call [facility] and see where everything is on their end.
[2019-08-11 10:52] VITALS: BP 147/86
--- NOTE | 2019-08-11 14:05 | PN ---
PATIENT:LYNN ZAMUDIO MEDICAL RECORD: [id number] LOCATION:[facility] ADMISSION DATE: 07/27/19 PROGRESS NOTE DATE OF SERVICE: 08/10/2019 SUBJECTIVE: The patient's case was discussed with staff. She has no new complaint. OBJECTIVE: The patient is in good behavioral control with limited insight about her condition. She has not been aggressive. ASSESSMENT: Dementia. PLAN: Brief supportive and educational interventions were made. Long-term prognosis is guarded. TRANSINT:[id number] Voice Confirmation ID: [id number] DOCUMENT ID: [id number] PATRICK DIETRICH MD at 1405 CC: [id number] DICTATION DATE: 08/10/19 1608 BELLOWS FILLER: 08/11/19 0013 ADM IN [place] [id number] [place] [address]
[2019-08-11 20:30] VITALS: BP 100/70
--- NOTE | 2019-08-11 23:14 | NUR ---
B.) PT IS ALERT AND ORIENTED TO HERSELF. SHE IS RECEIVED IN A GERICHAIR. SHE IS ABLE TO MAKE HER NEEDS KNOWN. SHE IS A TOTAL ASSIST WITH TRANSFER. SHE IS PLEASANT WITH STAFF AND PEERS. I.) REDIRECT NEEDED. PROVIDED PM MEDICATIONS. R.) EASY TO REDIRECT. COMPLIANT WITH ALL MEDICATIONS. P.) CONTINUE PLAN OF CARE
[2019-08-12 08:00] VITALS: BP 143/95
--- NOTE | 2019-08-12 10:53 | NUR ---
B) The patient is sleeping at this time. She was pleasant this am at breakfast but ate very little. She has not made any paranoid statements. I) Provide prescribed meds. R) The patient is compliant with meds. P) Continue POC.
--- NOTE | 2019-08-12 12:13 | PN ---
PATIENT:LYNN ZAMUDIO MEDICAL RECORD: [id number] LOCATION:[facility] ADMISSION DATE: 07/27/19 PROGRESS NOTE DATE OF SERVICE: 08/11/2019 SUBJECTIVE: The patient's case was discussed with staff. She has no new complaint. OBJECTIVE: The patient denies intent to harm herself or others. She is tolerating her medicines well. Eye contact is fair. ASSESSMENT: Dementia. PLAN: I anticipate the patient can be transitioned out of the hospital soon if this level of improvement continues. TRANSINT:[id number] Voice Confirmation ID: [id number] DOCUMENT ID: [id number] PATRICK DIETRICH MD at 1213 CC: [id number] DICTATION DATE: 08/11/19 1425 PETROLEUM ENGINEER: 08/11/[address] [facility] [address] [place] [address]
[2019-08-12 19:30] VITALS: BP 135/62
--- NOTE | 2019-08-13 00:58 | NUR ---
B.) PT IS ALERT AND ORIENTED TO SELF AND HAS LITTLE INSIGHT INTO HER SITUATION. SHE IS RECEIVED IN THE DAY ROOM IN A GERICHAIR. SHE IS SOCIAL AND PLEASANT WITH STAFF AND PEERS. SHE IS ABLE TO MAKE HER NEEDS KNOWN. I.) PROVIDED PM MEDICATIONS. REDIRECT OFTEN. R.) COMPLIANT WITH ALL MEDICATION. EASY TO REDIRECT. P.) CONTINUE PLAN OF CARE
[2019-08-13 08:00] VITALS: BP 160/93
--- NOTE | 2019-08-13 09:40 | NUR ---
PT IS AWAKE AND ALERT TO PERSON. CALM AMD COOPERATIVE WITH ASSESSMENT. PT DRANK ENSURE AT BREAKFAST, ENCOURAGED TO EAT PER STAFF. PT REFUSED BREAKFAST X 3. PRESCRIBED MEDS PROVIDED. MED COMPLIANT. PT IS VERY PLEASANT THIS MORNING WITH STAFF. PT STATES " I'M JUST NOT HUNGRY." EXPLAINED TO PT THE IMPORTANCE OF EATING. PT VERBALIZED UNDERSTANDING, STATED " I WILL TRY TO EAT MORE AT LUNCH." NO BEHAVIORS NOTED AT THIS TIME. FALL PRECAUTIONS IN PLACE. WILL CPOC.
[2019-08-13 20:00] VITALS: BP 127/66
--- NOTE | 2019-08-13 20:53 | PN ---
PATIENT:LYNN ZAMUDIO MEDICAL RECORD: [id number] LOCATION:[facility] ADMISSION DATE: 07/27/19 PROGRESS NOTE DATE OF SERVICE: 08/12/2019 SUBJECTIVE: The patient's case was discussed with staff. She has no new complaint. OBJECTIVE: The patient is in good behavioral control with limited insight about her condition. She is tolerating her medicines well. ASSESSMENT: Vascular dementia. PLAN: Brief supportive and educational interventions were made. Long-term prognosis is guarded. TRANSINT:[id number] Voice Confirmation ID: [id number] DOCUMENT ID: [id number] PATRICK DIETRICH MD at 2053 CC: [id number] DICTATION DATE: 08/12/19 1302 BONE GLUE MAKER: 08/12/19 1327 ADM IN [place] [address] [place] [address]
--- NOTE | 2019-08-13 21:07 | NUR ---
RECEIVED IN HALLWAY. SITTING IN A RECLINER OUTSIDE OF NURSES STATION. CALM AND COOPERATIVE WITH CARE AND ASSESSMENT. NO SIGNS OF PARANOIA. IN GOOD SPIRITS. REDIRECT AND REORIENT NEEDED. RESTING IN BED WITH EYES CLOSED AT THIS TIME. CONTINUE PLAN OF CARE
[2019-08-14 08:30] VITALS: BP 153/72
--- NOTE | 2019-08-14 10:50 | NUR ---
PT IS AWAKE AND ALERT TO PERSON. CALM AND COOPERATIVE WITH ASSESSMENT. PRESCRIBED MEDS PROVIDED. REDIRECT AND REORIENT NEEDED. MED COMPLIANT. NO BEHAVIORS NOTED AT THIS TIME. FALL PRECAUTIONS IN PLACE. WILL CPOC.
--- NOTE | 2019-08-14 14:07 | NUR ---
PATIENT AWAKE AND ALERT TO PERSON. CALM AND COOPERATIVE WITH CARE AND ASSESSMENT. ADMINISTER PRESCRIBED MEDICATIONS. MEDICATION COMPLIANT. REDIRECT AND REORIENT NEEDED. WILL CONTINUE PLAN OF CARE.
--- NOTE | 2019-08-14 15:38 | PN ---
PATIENT:LYNN ZAMUDIO MEDICAL RECORD: [id number] LOCATION:[facility] ADMISSION DATE: 07/27/19 PROGRESS NOTE DATE OF SERVICE: 08/13/2019 SUBJECTIVE: The patient's case was discussed with staff. She has no new complaint. OBJECTIVE: The patient is in good behavioral control with limited insight about her condition. She is tolerating her medicines well. ASSESSMENT: No change in diagnoses. PLAN: Current medicines have been reviewed and will be maintained. Long-term prognosis is guarded. TRANSINT:[id number] Voice Confirmation ID: [id number] DOCUMENT ID: [id number] PATRICK DIETRICH MD at 1538 CC: [id number] DICTATION DATE: 08/13/192106 TERMINAL SUPERINTENDENT: 08/14/19 0016 ADM IN [facility] [address] [place] [address]
[2019-08-14 23:24] VITALS: BP 122/80
--- NOTE | 2019-08-15 01:06 | NUR ---
RECEIVED IN HALLWAY OUTSIDE OF NURSES STATION. SITTING IN A RECLINER WITH PEERS AT HER SIDE. SOCIAL AT TIMES. CALM AND COOPERATIVE WITH CARE AND ASSESSMENT. NO SIGNS OF HALLUCINATIONS. REDIRECT AND REORIENT NEEDED. RESTING IN BED WITH EYES CLOSED. CONTINUE PLAN OF CARE
[2019-08-15 09:00] VITALS: BP 128/89
--- NOTE | 2019-08-15 10:30 | NUR ---
PT IS AWAKE AND ALERT TO PERSON. PT IS VERY PLEASANT THIS MORNING. SOCIALIZING WITH PEERS OVER BREAKFAST. CALM AND COOPERATIVE WITH ASSESSMENT. MED COMPLIANT. REDIRECT AND REORIENT NEEDED. NO BEHAVIORS NOTED AT THIS TIME. FALL PRECAUTIONS IN PLACE. WILL CPOC.
--- NOTE | 2019-08-15 11:54 | PN ---
PATIENT:LYNN ZAMUDIO MEDICAL RECORD: [id number] LOCATION:[facility] ADMISSION DATE: 07/27/19 PROGRESS NOTE DATE OF SERVICE: 08/14/2019 SUBJECTIVE: The patient's case was discussed with staff. She has no new complaint. OBJECTIVE: The patient is in good behavioral control with limited insight about her condition. She is generally tolerating her medicines well. Her behavior has significantly improved over the past couple of days. ASSESSMENT: Vascular dementia. PLAN: Current medicines have been reviewed and will be maintained. Long-term prognosis is guarded. TRANSINT:[id number] Voice Confirmation ID: [id number] DOCUMENT ID: [id number] PATRICK DIETRICH MD at 1154 CC: [id number] DICTATION DATE: 08/14/19 170 BUSINESS PARTNER: 08/14/191958 ADM IN [facility] [address] [place] [address]
[2019-08-15] MEDS ORDERED: LIPITOR20 MG PO (12:28)
[2019-08-15] MEDS ORDERED: COREG6.25 MG PO (12:28)
[2019-08-15] MEDS ORDERED: NIFEREX-150 CAP1 CA3 PO (12:28)
[2019-08-15] MEDS ORDERED: ASPIRIN81 MG PO (12:29)
[2019-08-15] MEDS ORDERED: PROZAC20 MG PO (12:29)
[2019-08-15] MEDS ORDERED: NAMENDA5 MG PO (12:30)
[2019-08-15] MEDS ORDERED: FLORAJEN3 CAPS460 MG PO (12:30)
[2019-08-15] MEDS ORDERED: LINZESS145 MCG PO (12:31)
[2019-08-15] MEDS ORDERED: Megace ES [CHEMO] PO (12:31)
--- NOTE | 2019-08-15 13:14 | NUR ---
SW CONTACTED FAMILY AND ALERTED OF DISCHARGE FOR TOMORROW TO [facility]. DTR VOICED UNDERSTANDING AND STATED SHE WOULD CONTACT HER UNCLE TO LET HIM KNOW.
--- NOTE | 2019-08-15 19:56 | NUR ---
RECEIVED IN DAYROOM. SITTING IN A RECLINING CHAIR WITH PEERS AT HER SIDE. CALM AND COOPERATIVE WITH CARE AND ASSESSMENT. NO SIGNS OF HALLUCINATIONS. REDIRECT AND REORIENT NEEDED. CONTINUES TO SIT CALMLY IN RECLINER. CONTINUE PLAN OF CARE.
[2019-08-15 22:59] VITALS: BP 133/84
--- NOTE | 2019-08-16 08:00 | NUR ---
REC'D PT IN HALLWAY BY NURSES STATION SOCIALIZING WITH PEERS. AWAKE AND ALERT TO PERSON. CALM AND COOPERATIVE WITH ASSESSMENT. PRESCRIBED MEDS PROVIVED. MED COMPLIANT. NO BEHAVIORS NOTED AT THIS TIME. PT IS PLEASANT AND VERY COOPERATIVE WITH PEERS AND STAFF. FALL PRECAUTIONS IN PLACE. WILL CPOC.
[2019-08-16 08:50] VITALS: BP 132/77
--- NOTE | 2019-08-16 11:27 | NUR ---
REPORT CALLED TO BRISEIDA,ADMISSION COORDINATOR AT [facility].
--- NOTE | 2019-08-16 12:24 | PN ---
PATIENT:LYNN ZAMUDIO MEDICAL RECORD: [id number] LOCATION:[facility] ADMISSION DATE: 07/27/19 PROGRESS NOTE DATE OF SERVICE: 08/15/2019 SUBJECTIVE: The patient's case was discussed with staff. She has no new complaint. OBJECTIVE: The patient is sleeping well and eating adequately. She is tolerating her current medications well. I anticipate that she can be transitioned back to the residential tomorrow. TRANSINT:[id number] Voice Confirmation ID: [id number] DOCUMENT ID: [id number] PATRICK DIETRICH MD at 1224 CC: [id number] DICTATION DATE: 08/15/19 1227 QUILLER TENDER: 08/15/19 1233 ADM IN [place] [id number] [place] [address]
--- NOTE | 2019-08-16 13:40 | NUR ---
DISCHARGED TO [facility] VIA VAN PER WHEELCHAIR. BELONGINGS GIVEN TO RADIOLOGY SUPERVISOR. SRINIVAS FAXED TO [facility].
--- NOTE | 2019-08-17 15:09 | PN ---
PATIENT:LYNN ZAMUDIO MEDICAL RECORD: [id number] LOCATION:[facility] ADMISSION DATE: 07/27/19 PROGRESS NOTE DATE OF SERVICE: 08/16/2019 SUBJECTIVE: The patient's case was discussed with staff. She has no new complaint. OBJECTIVE: The patient denies intent to harm herself or others. She is tolerating her medicines well. ASSESSMENT: Vascular dementia. PLAN: The patient will be transitioned out of the hospital today and back to the senior care. TRANSINT:[id number] Voice Confirmation ID: [id number] DOCUMENT ID: [id number] PATRICK DIETRICH MD at 1509 CC: [id number] DICTATION DATE: 08/16/19 1617 PODIATRIC PHYSICIAN: 08/16/19 2048 DIS IN 08/16/19 [facility] [address] [place] [address]
--- NOTE | 2019-08-26 12:38 | DS ---
PATIENT:LYNN ZAMUDIO :40 MEDICAL RECORD: [id number] DISCHARGE SUMMARY ADMISSION DATE: 07/27/19 DISCHARGE DATE: 08/16/19 IDENTIFYING DATA: The patient is 79 years old and she is admitted to the hospital on a voluntary basis because of psychosis. The patient was referred to us by the [facility] in [place]. It seems that the patient was there and had not been sleeping for several days. Apparently, the police were involved with her in a disturbance at her home and they brought her to the hospital. She had a bizarre delusion that her daughter and caregiver were someone else other than who they actually were and that there was another person in her house pretending to be her son. All of this was incorrect, very bizarre, and she was very agitated, confused, and even aggressive. She was referred to us for evaluation and treatment. HOSPITAL COURSE: The patient was admitted to the hospital and fully evaluated from both a medical, psychological, and social standpoint. She was treated with both mood stabilizing and memory enhancing medications. Her long-term prognosis is guarded. Her behaviors improved and she was subsequently transitioned to an outpatient setting. DISCHARGE DIAGNOSES: AXIS I: Major vascular neurocognitive disorder. AXIS II: None. AXIS III: Hypertension, myocardial infarction, chronic obstructive pulmonary disease, asthma, osteoarthritis, gastroesophageal reflux disease, and diabetes. AXIS IV: Moderate stressors. AXIS V: Global assessment of functioning is 40. PLAN: At the time of discharge, the patient was in good behavioral control and no longer had the delusions that precipitated this admission. Unfortunately, she has dementia and it is fairly advanced and she has clear evidence of significant cognitive impairment. She is not capable of making reasonable informed consent decisions and is in need of 08-pght-j-day supervision. TRANSINT:[id number] Voice Confirmation ID: [id number] DOCUMENT ID: [id number] PATRICK DIETRICH MD at 1238 CC: [id number] DICTATION DATE: 08/25/19 151 FIRE PROTECTION ENGINEER: 08/25/192049 DIS IN 08/16/19 [place] [place] [address]
== END 2019-08-16 13:40 | DRG 57 ==
LOC: D.PSYCH 01:40
PROVIDERS: Family Medicine; ADMIT Psychiatry & Neurology Psychiatry; ATTEND Psychiatry & Neurology Psychiatry
DX: I69.319 Unspecified symptoms and signs involving cognitive functions following cerebral infarction (principal); F01.51 Vascular dementia, unspecified severity, with behavioral disturbance; L03.113 Cellulitis of right upper limb; I10 Essential (primary) hypertension; J44.9 Chronic obstructive pulmonary disease, unspecified; J45.909 Unspecified asthma, uncomplicated; K21.9 Gastro-esophageal reflux disease without esophagitis; M19.90 Unspecified osteoarthritis, unspecified site; F41.9 Anxiety disorder, unspecified; E78.5 Hyperlipidemia, unspecified; D50.8 Other iron deficiency anemias; E53.8 Deficiency of other specified B group vitamins; R63.0 Anorexia; K59.03 Drug induced constipation; E11.40 Type 2 diabetes mellitus with diabetic neuropathy, unspecified